=== PATIENT | female | born 1960 | race Caucasian/White ===

== ENCOUNTER 2019-10-08 08:51 | Day surgery (SDC) | payer OTHER, SELFPAY ==
--- NOTE | 2019-10-04 10:13 | SUR.PREOP ---
10/04/2019--PHONE CALL MADE TO PATIENT. PATIENT UNDERSTANDS THAT LAB WORK AND COVID TESTING NEEDS TO BE COMPLETED THE MORNING OF HER SURGERY---PER [facility]. PATIENT UNDERSTANDS IF LAB WORK AND COVID-19 TESTS ARE NOT COMPLETED BY 12PM ON THAT DATE, THE SURGERY SCHEDULED WILL BE CANCELLED AND RESCHEDULED FOR ANOTHER TIME.
[2019-10-04 13:06] VITALS: BMI 18.2
[2019-10-08] VITALS (7 sets, daily range): BP systolic 135–159; BP diastolic 75–94; PULSE 86–110; RESP 18; TEMP 36.8–37.3; O2SAT 97–100
[2019-10-08 09:20] LABS: Adenovirus,PCR Not Detected (NotDetected); Bordetella Pertussis Not Detected (NotDetected); Chlamydophila Pneumoniae, PCR Not Detected (NotDetected); Coronavirus 19, PCR Not Detected (NotDetected); Coronavirus 229E Not Detected (NotDetected); Coronavirus NL63 Not Detected (NotDetected); Coronavirus OC43 Not Detected (NotDetected); Coronovirus HKU1,PCR Not Detected (NotDetected); Human Metapneumovirus Not Detected (NotDetected); Influenza A, PCR Not Detected (NotDetected); Influenza AH1, 2009 Not Detected (NotDetected); Influenza AH1, PCR Not Detected (NotDetected); Influenza AH3,PCR Not Detected (NotDetected); Influenza B, PCR Not Detected (NotDetected); Mycoplasma Pneumoniae, PCR Not Detected (NotDected); Parainfluenza 1, PCR Not Detected (NotDetected); Parainfluenza 2, PCR Not Detected (NotDetected); Parainfluenza 3, PCR Not Detected (NotDetected); Parainfluenza 4, PCR Not Detected (NotDetected); Respiratory Syncytial Virus Not Detected (NotDetected); Rhinovirus/Enterovirus Not Detected (NotDetected)
--- NOTE | 2019-10-08 11:02 | HMH.ANESCL ---
[facility] Anesthesia Checklist - Patient Identification Patient Identification: Arm Band, Verbal (Name & ) - Structural Data Admitted From: Home Planned Operative Procedure/s: egd Consent for Planned Operative Procedure(s) Verified: Yes Verified Documents: History and Physical - NPO Status Verified Time NPO: 00:00 - Additional verifications Patient : No Anesthesia Reactions: No Hx Blood Transfusions: No Blood Transfusion Reaction: No Cephalosporin Allergy: No Previous Colonoscopy: Yes - Cardiovascular Assessment Heart Sounds: S1 & S2 Pulse Strength: Baseline Pulse Rhythm: Regular Peripheral Edema: No - Airway Assessment C-Spine Mobility Assessed: Yes TMJ Mobility Assessed: Yes Dentition: Good Dentition - Neurological Assessment Level of Consciousness: Awake, Alert, Appropriate Hx Seizures: No Numbness or tingling in extremities: No - Anesthesia Plan Anesthesia Risk discussed: Yes Anesthesia Plan: Verified ASA Class: II Anesthesia Type: MAC [facility] History I have reviewed the patient's past medical history: Yes Medical History: Reports:: Hyperlipidemia Denies:: Cancer, Diabetes Mellitus Type 1, Diabetes Mellitus Type 2, Internal Pacemaker, MRSA, Seizures *Have you ever received a pneumonia vaccine?: No *Have you received a flu vaccine this season?: Yes Anesthesia experience/problems:: none Laterality Cases: Right: Arthroscopy Shoulder Other Surgeries: No: Pacemaker Amputation: No Fractures: No - *Social History Educational Level: Completed College Alcohol Intake: never Substance Use Type: other *Occupational Status:: employed Housing: house Household Members: spouse *Travel in the last 8 weeks: None Family Hx:: No significant family history
--- NOTE | 2019-10-08 12:19 | HMH.PROC ---
[facility] Procedure Note Procedure Note:: Upper Endoscopy Procedure Report: Esophagogastroduodenoscopy with cold biopsies and TTS balloon dilation Endoscopost: Raciel Kaur II, MD Referring Physician: Sofia Spangler PA-C Date of Procedure: October 08, 2019 Equipment: Olympus GIF 180 standard upper endoscope Sedation: MAC sedation Indications: Mrs. Osorio is a 59-year-old female with chronic cough that began 3 years ago (March 2016) and she has seen numerous specialists including nut dehydrator operator, chassis wirer (Dr. Saige Haas), blood bank technologist and ENT physician. She initially went to Dr. Tim (nut dehydrator operator in [place]) and was sent because of possible pulmonary fibrosis. However, her most recent CAT scan showed minimal and inactive pulmonary disease with no significant fibrosis. Her ENT physician felt this was reflux. She had an EGD with Saige Haas in December 2017 and this showed that she had nonerosive GERD and small hiatal hernia. Biopsies of the esophagus did not show Chaudhary's esophagus. She has been on domperidone for a couple of years in the past and was diagnosed with gastroparesis in 2010. She has had GERD symptoms since 1987 and has been on long-term PPI therapy. Presently she has been taking pantoprazole and famotidine. She does get moderate belching. She has some globus sensation with frequent clearance of the throat and coughing. She reports no significant bloating or gassiness. She has longstanding IBS with diarrhea and has up to 7 bowel movements daily. She did see me for telemedicine consultation on September 20, 2019 and we discussed additional diagnostic evaluation. The patient had been on Bentyl for her IBS long-term. I did recommend dietary measures, Iberogast and reinitiation of domperidone. Her IBS is improved but she continues to have cough. Procedure: Prior to the procedure, a history and physical exam was performed, and patient's medications and allergies were reviewed. The risks, benefits and alternatives of the sedation and procedure were discussed with the patient. All questions were answered and informed consent was obtained. The patient was brought to the procedure room. Patient identification and proposed procedure were verified by the physician and the nurse. The patient was placed in a left lateral decubitus position and the scope was passed under direct vision. Throughout the procedure, the patient's blood pressure, pulse, and oxygen saturations were monitored continuously. The upper GI endoscopy was accomplished without difficulty. The patient tolerated the procedure well. Findings: The scope was passed directly into the upper esophagus and advanced to the third portion of the duodenum. The post bulbar duodenum and duodenal bulb were normal with normal mucosa and conniventes. The scope was withdrawn through a normal duodenal bulb and pylorus into the stomach. There was moderate bile reflux with linear reactive gastropathy of the antrum and body of the stomach. Biopsies were taken from the gastric antrum to rule out reactive gastropathy. The remainder of the body and fundus of the stomach were grossly normal. Upon retroflexion there was a 2 cm hiatal hernia (small). The scope was then withdrawn into the esophagus. There was no evidence of reflux esophagitis or Chaudhary's. Biopsies were taken at the GE junction to rule out intestinal metaplasia. There were tertiary contractions and evidence of moderate esophageal dysmotility. The entire esophagus was dilated to 60 Serbian/20 mm with a TTS hydrostatic balloon. There was some resistance at the cricopharyngeus/cricopharyngeal spasm. There was no esophageal inlet patch. The vocal cords and pharynx were examined and there was some chronic changes of laryngopharyngeal reflux (LPR). The remainder of the esophageal mucosa was normal. Impression: 1. Nonerosive GERD with mild esophageal dysmotility and small 2 cm hiatal hernia 2. Cricopharyngeal
== END 2019-10-08 13:15 | disposition home or self-care (01) ==
LOC: OUTP 08:56
PROVIDERS: Visit Provider Internal Medicine Gastroenterology
PROC: 0DJ08ZZ Inspection of Upper Intestinal Tract, Via Natural or Artificial Opening Endoscopic (ICD-10-PCS; CPT 43235; principal; 2019-10-08 10:30)
DX: K21.0 Gastro-esophageal reflux disease with esophagitis (principal); K44.9 Diaphragmatic hernia without obstruction or gangrene; K22.4 Dyskinesia of esophagus; K58.0 Irritable bowel syndrome with diarrhea; R05 Cough; E03.9 Hypothyroidism, unspecified; Z88.2 Allergy status to sulfonamides; Z88.0 Allergy status to penicillin; Z79.899 Other long term (current) drug therapy
CPT/HCPCS: 43239; 43249; 87581; 87633; 87798; C1726

== ENCOUNTER 2025-02-28 09:36 | Day surgery (SDC) | payer MEDICARE, SELFPAY ==
--- NOTE | 2025-02-22 10:58 | EXP.HP ---
History of Present Illness *Admission Date: 02/28/25 *History of present illness: Mrs. Osorio is a 64-year-old female who is here for follow-up screening/surveillance colonoscopy. She does have a family history of colon cancer and personal history of adenomatous colon polyps. Her full sister was diagnosed with cecal colon cancer at the age of 66. Her half sister had colon cancer around the age of 50. She also had a maternal grandfather with colon cancer. The patient did have a colonoscopy in February 2019 and had 5 polyps (tubular adenomas x 5) removed. Her last colonoscopy with [facility] in September 2022 revealed a single polyp (tubular adenoma) which was removed. She did have some diverticulosis. The examination is deemed medically necessary for screening colonoscopy. The patient has been seen, interviewed and examined prior to the procedure by both myself and the anesthesia provider. [facility] Disclaimer: The information contained in this section may have been updated after the patient was seen, as this information can be updated by other users. Medical History Thyroid disease Restless legs syndrome (RLS) Osteoporosis Irritable bowel syndrome High blood cholesterol Hiatal hernia GERD (gastroesophageal reflux disease) Personal history of adenomatous and serrated colon polyps Functional dyspepsia Exocrine pancreatic insufficiency Surgical History History of nasal septoplasty H/O shoulder surgery History of cholecystectomy Previous section Family History Sister Colon cancer Grandfather Colon cancer Social History (Updated 02/28/25 @ 10:12 by Stu Richardson RN) Smoking Status: Never smoker alcohol intake: never substance use type: other current occupational status: retired Travel in the last 8 weeks?: None household members: spouse housing: house current occupational exposures/hazards: No caffeine: No Have you lived/traveled outside [place] in past 30 days?: No Contact w/someone who lives/traveled outside US past 30 days?: No Exposure to someone with infectious disease in past 14 days?: No Do you have a fever (greater than 100.4 F or 38 C)?: No Have you tested positive for COVID-19?: Yes Exposed to someone with COVID-19 in past 14 days?: No Do you have a sore throat?: No Do you have a cough?: Yes Do you have any weakness?: No Are you experiencing any nausea/vomitting?: No Do you have any diarrhea?: No Are you experiencing any unusual bleeding?: No Do you have any muscle aches/pain?: No Do you have any abdominal pain?: No Are you experiencing loss of taste or smell?: No Other Medical History Have you received the Flu Vaccine for this season: Yes Have you received the Pneumonia Vaccine: No Review of Systems Review of Systems Review of systems (narrative): Negative *Cardiovascular Comments: Negative *Gastrointestinal Comments: Negative *Genitourinary Comments: Negative *Musculoskeletal Comments: Negative *Neurologic Comments: Negative Meds Home Medications and Allergies Home Medications ?Medication ?Instructions ?Recorded ?Confirmed ?Type loratadine 10 mg capsule 10 mg PO DAILY allergies 10/04/19 02/28/25 History aspirin 325 mg tablet 325 mg PO DAILY 03/20/24 02/28/25 History denosumab 60 mg/mL subcutaneous 60 mg SQ [id number] 03/20/24 02/28/25 History syringe (Prolia) hydrochlorothiazide 12.5 mg capsule 12.5 mg PO DAILY 03/20/24 02/28/25 History levothyroxine 75 mcg tablet 75 mcg PO DAILY 03/20/24 02/28/25 History metoprolol tartrate 25 mg tablet 25 mg PO BID 03/20/24 02/28/25 History ropinirole 1 mg tablet 1 mg PO DAILY 03/20/24 02/28/25 History rosuvastatin 5 mg tablet 5 mg PO DAILY 03/20/24 02/28/25 History ascorbic acid (vitamin C) 100 mg 100 mg PO DAILY 02/28/25 02/28/25 History tablet (Vitamin C) aspirin 325 mg capsule 325 mg PO DAILY 02/28/25 02/28/25 History miscellaneous medical supply 1 ea miscellaneous DAILY 02/28/25 02/28/25 History miscellaneous medical supply 1 ea miscellaneous DAILY 02/28/25 02/28/25 History New Prescriptions to Start Prescriptions: Allergies Allergy/AdvReac Type Severity Reaction Status Date / Time codeine Allergy Other Verified 02/28/25 10:02 Sulfa (Sulfonamide Allergy Other Verified 02/28/25 10:02 Antibiotics) Exam *Routine HEENT Exam Head: Present normocephalic Eye: Present EOMI and PERRL ENT: Present mucous membranes moist *Routine Neck Exam Neck: Present supple *Routine Respiratory Exam Respiratory: Present CTA bilaterally *Routine Cardiovascular Exam Cardiovascular: Present RRR *Routine Abdominal Exam Abdominal: Present soft and normoactive bowel sounds; Absent tenderness *Routine Rectal Exam Rectal:: deferred *Routine Genitalia Exam Genitalia:: deferred *Routine Extremities Exam Extremities: Absent cyanosis, clubbing or edema *Routine Skin Exam Skin: Present warm; Absent rash *Routine Neurological Exam Neurological: Present alert and oriented X3 Assessment and Plan *Assessment and plan (1) Family history of colon cancer: Status: Acute Category: Medical Code(s): Z80.0 - (2) Personal history of adenomatous and serrated colon polyps: Status: Acute Category: Medical Code(s): Z86.0101 - (3) Screening for colon cancer: Status: Acute Category: Medical Code(s): Z12.11 - Plan A/P: 1.Personal history of adenomatous colon polyps and family history of colon cancer is the preprocedural diagnosis. The patient will be anesthetized/sedated using MAC sedation. The patient has been seen and examined. Cardiac and lung assessment prior to the examination is stable. Proceed with planned screening/surveillance colonoscopy.
--- NOTE | 2025-02-27 07:55 | HMH.PROCNOTE ---
[facility] Procedure Note Date: 02/28/25 Time: 11:09 Procedure Note:: Colonoscopy Procedure Report: Colonoscopy Endoscopist: Raciel Kaur II, MD Referring physician: Sukumar Baez MD, [place] [address] Date of Procedure: February 28, 2025 Equipment: Olympus [id number] adult colonoscope Sedation: MAC sedation Indication: Mrs. Osorio is a 64-year-old female who is here for follow-up screening/surveillance colonoscopy. She does have a family history of colon cancer and personal history of adenomatous colon polyps. Her full sister was diagnosed with cecal colon cancer at the age of 66. Her half sister had colon cancer around the age of 50. She also had a grandfather with colon cancer. The patient did have a colonoscopy in February 2019 and had 5 polyps (tubular adenomas x 5) removed. Her last colonoscopy with [facility] in September 2022 revealed a single polyp (tubular adenoma) which was removed. She did have some diverticulosis. The patient reports no rectal bleeding, abdominal pain, change in her bowel habits or weight loss. The examination is deemed medically necessary for screening colonoscopy. Procedure: Prior to the procedure, a history and physical exam was performed, and patient's medications and allergies were reviewed. The risks, benefits and alternatives of the sedation and procedure were discussed with the patient. All questions were answered and informed consent was obtained. The patient was brought to the procedure room. Patient identification and proposed procedure were verified by the physician and the nurse. The patient was placed in a left lateral decubitus position and the scope was passed under direct vision. Throughout the procedure, the patient's blood pressure, pulse, and oxygen saturations were monitored continuously. The colonoscopy was accomplished without difficulty. The patient tolerated the procedure well. Findings: On digital rectal examination there was normal rectal tone. There were no external hemorrhoids. The colonoscope was introduced through the anal canal to the rectum and advanced to the cecum. The ileocecal valve and appendiceal orifice were identified. The scope was advanced a short distance into the ileum which appeared grossly normal. The scope was then withdrawn into the colon. The cecum, ascending and transverse colon and mucosa were grossly normal. There were scattered diverticuli throughout the descending and sigmoid colon (LEFT colon). The rectum itself was normal. Upon retroflexion within the rectum there were grade 1 internal hemorrhoids. The preparation was excellent throughout with Canadian Preparation Score of 9. The cecal time was 14 minutes. Impression: 1. Left-sided diverticulosis 2. Grade 1 internal hemorrhoids Plan: Based upon the patient's family history and prior history of adenomatous colon polyps, I would recommend repeat screening/surveillance colonoscopy again in 5 years.
[2025-02-28 09:57] VITALS: BMI 20.9
[2025-02-28] MEDS: LACTATED RINGERS 1000ML 1,000 ML 50 ML IV (09:58)
[2025-02-28 10:13] VITALS: BP 147/66; PULSE 78; RESP 18; TEMP 36.7; O2SAT 98
[2025-02-28 11:11] VITALS: BP 124/69; PULSE 84; RESP 20; TEMP 36.1; O2SAT 100
[2025-02-28 11:21] VITALS: BP 120/69; PULSE 81; RESP 20; TEMP 36.1; O2SAT 100
[2025-02-28 11:31] VITALS: BP 128/71; PULSE 83; RESP 20; TEMP 36.1; O2SAT 100
[2025-02-28 11:41] VITALS: BP 139/85; PULSE 79; RESP 20; TEMP 36.1; O2SAT 100
== END 2025-02-28 11:57 | disposition home or self-care (01) ==
PROVIDERS: Visit Provider Internal Medicine Gastroenterology
PROC: 0DJD8ZZ Inspection of Lower Intestinal Tract, Via Natural or Artificial Opening Endoscopic (ICD-10-PCS; CPT 45378; principal; 2025-02-28 11:00)
DX: Z12.11 Encounter for screening for malignant neoplasm of colon (principal); K57.30 Diverticulosis of large intestine without perforation or abscess without bleeding; K64.0 First degree hemorrhoids; Z80.0 Family history of malignant neoplasm of digestive organs; Z86.0101 Personal history of adenomatous and serrated colon polyps; E07.9 Disorder of thyroid, unspecified; M81.0 Age-related osteoporosis without current pathological fracture; E78.00 Pure hypercholesterolemia, unspecified; G25.81 Restless legs syndrome; K86.81 Exocrine pancreatic insufficiency; Z79.899 Other long term (current) drug therapy; Z79.82 Long term (current) use of aspirin; Z79.890 Hormone replacement therapy; Z88.5 Allergy status to narcotic agent; Z88.2 Allergy status to sulfonamides
CPT/HCPCS: G0105; J2003; J2704; J7120